=== PATIENT | female | born 1965 | race Caucasian/White ===

== ENCOUNTER 2016-12-20 17:31 | Emergency (ER) | payer OTHER ==
[~2016-12-20] VITALS: Ht 167.6 cm; Wt 134.4 kg
[2016-12-20 17:33] VITALS: TEMP 36.8; Ht 167.6 cm; Wt 134.4 kg
[2016-12-20] MEDS ORDERED: SODIUM CHLORIDE 0.9% 1000ML 1,000 ML IV STA (17:50)
[2016-12-20 18:08] LABS: BASO % 0.2 %; BASO ABS # 0.03 K/uL (0-0.2); COMPLETE YES; EOS % 0.5 %; HEMATOCRIT 42.5 % (37-47); IG% 0.4 %; LYMPH % 21.3 %; LYMPH ABS # 2.86 K/uL (1.2-3.4); MEAN CELL VOLUME 93.8 fL (80-100); MEAN CORPUSCULAR HEMOGLOBIN 32.9 pg (25-34); MEAN CORPUSCULAR HGB CONC 35.1 g/dl (32-36); MEAN PLATELET VOLUME 9.3 fL (7.4-10.4); MONO % 5.7 %; NEUT % 71.9 %; PLATELET COUNT 317 K/uL (130-400); RED BLOOD COUNT 4.53 M/uL (4.2-5.4); WHITE BLOOD COUNT 13.42 K/uL (4.8-10.8)
[2016-12-20 18:28] LABS: ALT/SGPT 39 U/L (12-78); BLOOD UREA NITROGEN 18 mg/dl (7-18); CALCIUM 9.5 mg/dl (8.5-10.1); CARBON DIOXIDE 25 mmol/L (21-32); CHLORIDE 106 mmol/L (98-107); GLUCOSE 104 mg/dl (70-99); POTASSIUM 3.6 mmol/L (3.5-5.1); SODIUM 142 mmol/L (136-145)
[2016-12-20 18:33] LABS: ALB/GLOB RATIO 0.9 (0.9-2); ALKALINE PHOSPHATASE 63 U/L (45-117); AST/SGOT 39 U/L (15-37)
--- NOTE | 2016-12-20 18:37 | DIAGNOSTIC IMAGING REPORT ---
ABD/PELVIS WITHOUT FOR STONE HISTORY: 51 years-old Female Left flank pain acute left-sided flank pain. Initial exam. COMPARISON: None available TECHNIQUE: Multiple axial CT images of the abdomen and pelvis were obtained without IV contrast. A dose lowering technique was used consistent with the principals of JAMMIE. FINDINGS: Lung bases are generally clear. There is no pneumoperitoneum. Imaged inferior cardiac chambers are unremarkable. Aortic annular calcifications are partially imaged. Hepatomegaly with severe hepatic steatosis is noted morbid obesity is noted. There is a nonspecific 7 mm area of increased attenuation involving the lateral left hepatic lobe seen on image 31 of the axial series with similar appearing 11 mm lesion seen within the inferior right hepatic lobe. The spleen, pancreas and adrenal glands are within normal limits. Gallbladder is unremarkable. There is moderate left-sided hydroureteronephrosis with a 4 x 3 x 3 mm calculus present within the distal left ureter which is seen at the level of S1-S2. Additionally, there is a punctate nonobstructing calculus in the interpolar left kidney. Several nonobstructing renal calculi are seen within the inferior pole right kidney. There is a large calculus of the right renal pelvis, 2.8 x 2.2 x 2.4 cm which demonstrates associated severe right-sided hydronephrosis. Urinary bladder is unremarkable. 2.0 x 1.5 cm lesion involves the left fundal uterus suggesting a subserosal leiomyoma. The abdominal aorta is normal in course and caliber. There is no bulky retroperitoneal adenopathy identified. No bowel obstruction. Colonic diverticulosis without diverticulitis noted. Appendix appears normal. Small fat filled periumbilical hernia is noted, diastases 1.9 cm. Degenerative changes involve the bilateral sacroiliac joints, pubic symphysis and lower lumbar spine. Moderate facet arthrosis involves lower lumbar spine. There is nonspecific soft tissue attenuating lesion of the subcutaneous left mid back, 1.6 x 1.3 cm seen on image 108 suggesting sebaceous cyst. IMPRESSION: 1. Large calculus of the right renal pelvis extends into the ureteropelvic junction measuring up to 2.8 cm causing severe right-sided hydronephrosis. 2. 4 mm calculus of the distal left ureter causes moderate hydroureteronephrosis. 3. Additional bilateral nonobstructing renal calculi. 3. Normal appendix. 4. Colonic diverticulosis without diverticulitis. 5. Hepatomegaly with severe hepatic steatosis. There are two foci within the liver demonstrating increased attenuation measuring up to 11 mm as above which are nonspecific. Statistically these lesions would favor hemangiomas or focal fatty sparing. The above report was generated using voice recognition software. It may contain grammatical, syntax or spelling errors. Electronically signed by: Ronaldo Maguire M.D. 12/20/2016 6:35 PM Dictated Date/Time: 12/20/2016 6:26 PM
[2016-12-20] MEDS ORDERED: HYZ/50125 PO (18:44)
[2016-12-20] MEDS ORDERED: MULT1CHW37 PO (18:44)
[2016-12-20 18:54] LABS: URINE APPEARANCE CLEAR (CLEAR); URINE BILIRUBIN NEG (NEG); URINE COLOR YELLOW; URINE EPITHELIAL CELL AUTO >30 /lpf (0-5); URINE NITRITE NEG (NEG); URINE PH 5.5 (4.5-7.5); URINE SPECIFIC GRAVITY 1.019 (1.000-1.030); UROBILINOGEN NEG (NEG); ZZUR CULT IF INDIC CLEAN CATCH YES
[2016-12-20] MEDS ORDERED: OXYC1TAB3 PO (18:57)
[2016-12-20] MEDS ORDERED: TAMS0.4C38 PO (18:58)
[2016-12-20 18:59] LABS: MANUAL MICROSCOPIC REQUIRED? NO; REVIEW REQ? NO
--- NOTE | 2016-12-20 19:01 | EMERGENCY ROOM VISIT NOTE ---
History First contact with patient: 17:40 Chief Complaint: FLANK PAIN Stated Complaint: LEFT SIDE PAIN History of Present Illness The patient is a 51 year old female who presents to the Emergency Room with complaints of left flank pain which began today. The patient states the pain seems to be radiating into her left upper quadrant in her abdomen. The patient was at the [facility] football game, and states the pain began during the game. She states she did vomit once at the end of the game. She states the nausea and pain have been improving since she got to the emergency department. The patient does have a significant past medical history of kidney stones, and states at one point she did have 35 stones and required 2 lithotripsies. The patient states this was approximately 15 years ago. The patient has not had a problem with kidney stone since then. The patient states that its worst, the pain radiated into her back, and she describes it as feeling "knifelike". The patient rated the pain 10/10. The patient states normally, the pain is dull and achy, and she describes it as 5/10. The patient has taken no medications for her pain. The patient denies fever, chills, constipation, diarrhea, headache, dizziness, blood in her urine, urinary symptoms including burning or frequency, chest pain, difficulty breathing, or other concerning symptoms. Review of Systems A complete 10 point review of systems was reviewed with the patient with pertinent positives and negatives as per history of present illness. All else were negative. Social History Smoking Status: Never Smoker Current/Historical Medications Scheduled Hctz/Losartan (Hyzaar 12.5MG/50MG), 1 TAB PO DAILY Multiple Vitamins W/ Minerals (Multi Adult Gummies), 2 TABS PO DAILY Tamsulosin Hcl (Flomax), 0.4 MG PO QD Scheduled PRN Oxycodone Ir (Roxicodone Ir), 1 TAB PO Q4-6H PRN for Pain Physical Exam Vital Signs Date Time Temp Pulse Resp B/P (MAP) Pulse Ox O2 Delivery O2 Flow Rate FiO2 12/20/16 19:26 82 152/95 98 12/20/16 18:44 90 155/92 98 Room Air 12/20/16 17:33 36.8 105 18 165/78 99 Room Air Physical Exam VITALS: Vitals are noted on the nurse's note and reviewed by myself. Vital signs stable. GENERAL: This is a 51-year-old obese, white female, in no acute distress, nondiaphoretic, well-developed well-nourished. SKIN: The skin was without rashes, erythema, edema, or bruising. There is no tenting of the skin. Capillary reflex less than 2 seconds. HEAD: Normocephalic atraumatic. EARS: External auditory canals clear, tympanic membranes pearly lacy without erythema or effusion bilaterally. EYES: Pupils equal round and reactive to light and accommodation. Conjunctivae without injection, sclerae without icterus. Extraocular movements intact. NOSE: Patent, turbinates without inflammation or discharge. No sinus tenderness. MOUTH: Mucous membranes moist. Tonsils are not enlarged. Pharynx without erythema or exudate. Uvula midline. Airway patent. Tongue does not deviate. NECK: Supple without nuchal rigidity. No lymphadenopathy. No thyromegaly. Cervical spine is nontender. No JVD. HEART: Regular rate and rhythm without murmurs gallops or rubs. LUNGS: Clear to auscultation bilaterally without wheezes, rales or rhonchi. No dullness to percussion. No retractions or accessory muscle use. ABDOMEN: Positive bowel sounds x 4. Normal tympanic percussion. Soft, nontender, without masses or organomegaly. Damon sign negative. No guarding or rebound tenderness. No CVA tenderness on palpation. MUSCULOSKELETAL: No muscle atrophy, erythema, or edema noted. Full range of motion without joint tenderness in all extremities. No tenderness to palpation. Normal gait. Strength 5/5 throughout. NEURO: Patient was alert and oriented to person place and time. Normal sensation to light and sharp touch. Deep tendon reflexes 2+ throughout. No focal neurological deficits. Medical Decision & Procedures ER Provider Diagnostic Interpretation: Urinalysis did show hematuria and white blood cells. The urinalysis is negative for nitrites. CBC did show mild leukocytosis of 13,000. CBC did not show any significant anemia or thrombocytopenia. CMP was without significant abnormalities and renal or liver function. Electrolytes were normal. Troponin and CK-MB were normal. Lipase was negative. CT ABDOMEN/PELVIS WITHOUT CONTRAST FOR STONE: FINDINGS: Lung bases are generally clear. There is no pneumoperitoneum. Imaged inferior cardiac chambers are unremarkable. Aortic annular calcifications are partially imaged. Hepatomegaly with severe hepatic steatosis is noted morbid obesity is noted. There is a nonspecific 7 mm area of increased attenuation involving the lateral left hepatic lobe seen on image 31 of the axial series with similar appearing 11 mm lesion seen within the inferior right hepatic lobe. The spleen, pancreas and adrenal glands are within normal limits. Gallbladder is unremarkable. There is moderate left-sided hydroureteronephrosis with a 4 x 3 x 3 mm calculus present within the distal left ureter which is seen at the level of S1-S2. Additionally, there is a punctate nonobstructing calculus in the interpolar left kidney. Several nonobstructing renal calculi are seen within the inferior pole right kidney. There is a large calculus of the right renal pelvis, 2.8 x 2.2 x 2.4 cm which demonstrates associated severe right-sided hydronephrosis. Urinary bladder is unremarkable. 2.0 x 1.5 cm lesion involves the left fundal uterus suggesting a subserosal leiomyoma. The abdominal aorta is normal in course and caliber. There is no bulky retroperitoneal adenopathy identified. No bowel obstruction. Colonic diverticulosis without diverticulitis noted. Appendix appears normal. Small fat filled periumbilical hernia is noted, diastases 1.9 cm. Degenerative changes involve the bilateral sacroiliac joints, pubic symphysis and lower lumbar spine. Moderate facet arthrosis involves lower lumbar spine. There is nonspecific soft tissue attenuating lesion of the subcutaneous left mid back, 1.6 x 1.3 cm seen on image 108 suggesting sebaceous cyst. IMPRESSION: 1. Large calculus of the right renal pelvis extends into the ureteropelvic junction measuring up to 2.8 cm causing severe right-sided hydronephrosis. 2. 4 mm calculus of the distal left ureter causes moderate hydroureteronephrosis. 3. Additional bilateral nonobstructing renal calculi. 3. Normal appendix. 4. Colonic diverticulosis without diverticulitis. 5. Hepatomegaly with severe hepatic steatosis. There are two foci within the liver demonstrating increased attenuation measuring up to 11 mm as above which are nonspecific. Statistically these lesions would favor hemangiomas or focal fatty sparing. Laboratory Results 12/20/16 18:00 Red Blood Count 4.53, Mean Corpuscular Volume 93.8, Mean Corpuscular Hemoglobin 32.9, Mean Corpuscular Hemoglobin Concent 35.1, Mean Platelet Volume 9.3, Neutrophils (%) (Auto) 71.9, Lymphocytes (%) (Auto) 21.3, Monocytes (%) (Auto) 5.7, Eosinophils (%) (Auto) 0.5, Basophils (%) (Auto) 0.2, Neutrophils # (Auto) 9.65, Lymphocytes # (Auto) 2.86, Monocytes # (Auto) 0.76, Eosinophils # (Auto) 0.07, Basophils # (Auto) 0.03 12/20/16 18:00 Test 12/20/16 17:49 12/20/16 17:50 12/20/16 18:00 Urine Color YELLOW Urine Appearance CLEAR (CLEAR) Urine pH 5.5 (4.5-7.5) Urine Specific Anselmo 1.019 (1.000-1.030) Urine Protein 1+ (NEG) Urine Glucose (UA) NEG (NEG) Urine Ketones 1+ (NEG) Urine Occult Blood 2+ (NEG) Urine Nitrite NEG (NEG) Urine Bilirubin NEG (NEG) Urine Urobilinogen NEG (NEG) Urine Leukocyte Esterase SMALL (NEG) Urine WBC (Auto) 10-30 /hpf (0-5) Urine RBC (Auto) 10-30 /hpf (0-4) Urine Hyaline Casts (Auto) 1-5 /lpf (0-5) Urine Epithelial Cells (Auto) >30 /lpf (0-5) Urine Bacteria (Auto) NEG (NEG) Creatine Kinase MB Ratio (0-3.0) White Blood Count 13.42 K/uL (4.8-10.8) Red Blood Count 4.53 M/uL (4.2-5.4) Hemoglobin 14.9 g/dL (12.0-16.0) Hematocrit 42.5 % (37-47) Mean Corpuscular Volume 93.8 fL (80-100) Mean Corpuscular Hemoglobin 32.9 pg (25-34) Mean Corpuscular Hemoglobin Concent 35.1 g/dl (32-36) Platelet Count 317 K/uL (130-400) Mean Platelet Volume 9.3 fL (7.4-10.4) Neutrophils (%) (Auto) 71.9 % Lymphocytes (%) (Auto) 21.3 % Monocytes (%) (Auto) 5.7 % Eosinophils (%) (Auto) 0.5 % Basophils (%) (Auto) 0.2 % Neutrophils # (Auto) 9.65 K/uL (1.4-6.5) Lymphocytes # (Auto) 2.86 K/uL (1.2-3.4) Monocytes # (Auto) 0.76 K/uL (0.11-0.59) Eosinophils # (Auto) 0.07 K/uL (0-0.5) Basophils # (Auto) 0.03 K/uL (0-0.2) RDW Standard Deviation 45.2 fL (36.4-46.3) RDW Coefficient of Variation 13.2 % (11.5-14.5) Immature Granulocyte % (Auto) 0.4 % Immature Granulocyte # (Auto) 0.05 K/uL (0.00-0.02) Anion Gap 11.0 mmol/L (3-11) Est Creatinine Clear Calc Drug Dose 93.8 ml/min Estimated GFR () 75.5 Estimated GFR (Non- 65.2 BUN/Creatinine Ratio 18.0 (10-20) Calcium Level 9.5 mg/dl (8.5-10.1) Total Bilirubin 0.4 mg/dl (0.2-1) Aspartate Amino Transf (AST/SGOT) 39 U/L (15-37) Alanine Aminotransferase (ALT/SGPT) 39 U/L (12-78) Alkaline Phosphatase 63 U/L (45-117) Creatine Kinase MB 1.6 ng/ml (0.5-3.6) Troponin I < 0.015 ng/ml (0-0.045) Total Protein 7.0 gm/dl (6.4-8.2) Albumin 3.4 gm/dl (3.4-5.0) Globulin 3.6 gm/dl (2.5-4.0) Albumin/Globulin Ratio 0.9 (0.9-2) Lipase 92 U/L (73-393) Medications Administered Medications (Trade) Dose Ordered Sig/Jim Route Start Time Stop Time Status Last Admin Dose Admin Sodium Chloride 1,000 ml @ 999 mls/hr Q1H1M STAT IV 12/20/16 17:50 12/20/16 18:50 DC 12/20/16 17:50 999 MLS/HR Oxycodone HCl (Roxicodone Immediate Rel 5MG Home Pack) 1 homepack UD ONCE PO 12/20/16 19:15 12/20/16 19:16 DC 12/20/16 19:09 1 HOMEPACK ECG Indication: abdominal pain Rate (beats per minute): 91 Rhythm: normal sinus Findings: no acute ischemic change, no ectopy ED Course The patient was seen and evaluated as above. She was given a 1 L bolus of normal saline solution. The patient states her pain is manageable at this time. Labs, EKG, urinalysis were ordered and performed. CT scan without contrast was ordered. I discussed the findings with the patient as well as Dr. Gresham. The patient states she would not like to be admitted, and states she will refuse admission if that is our recommendation. The patient's pain has been under good control since she has been in the emergency department, and she does have a history of stones. The patient does have an established urologist, and will follow-up next week. I did discuss all risks of discharge including worsening hydronephrosis, renal infection, and . The patient states she understands and would like to go home. The patient was given a home pack of OxyIR and paper prescriptions. She was discharged home in good condition. Medical Decision The patient presented today with left flank pain, similar to the pain she has experienced in the past with kidney stones. The patient's workup is consistent with ureteral calculus. The right-sided calculus in the right renal pelvis causing hydronephrosis does appear to be chronic in nature. The patient will follow up short-term with her urologist when she gets home to the [facility]. Differential diagnosis includes: Ureteral calculi, renal calculi, hydronephrosis , pyelonephritis, urinary tract infection, abscess, infection, sepsis, malignancy, and others. [place] Drug Monitoring Program Search Results: patient reviewed within database, no issues identified Medication Reconcilliation Current Medication List: was personally reviewed by mt Blood Pressure Screening Patient's blood pressure: Elevated blood pressure Blood pressure disposition: Elevated BP felt to be situational Impression Primary Impression: Calculi, ureter Additional Impressions: Ureteropelvic junction calculus Hydronephrosis Departure Information Dispostion Home / Self-Care Condition GOOD Prescriptions Tamsulosin Hcl (FLOMAX) 0.4 Mg Cap 0.4 MG PO QD for 7 Days, #7 CAP Prov: Judy Carl, ALANA 12/20/16 Oxycodone Ir (Roxicodone Ir) 5 Mg Tab 1 TAB PO Q4-6H Y for Pain, #15 TAB For Initial Treatment Prov: Judy Carl PA-C 12/20/16 Referrals No Doctor, Assigned (PCP) Patient Instructions ED Stone Renal [facility], [facility] Additional Instructions You have been treated in the Emergency Department today for a Kidney Stone ( Nephrolithiasis). You have been prescribed OxyIR to be used for pain control. This is a narcotic medication. You cannot drive or consume alcohol while on this medicine. This medicine should only be used for pain that cannot be controlled with over-the- counter pain medicines. You have been prescribed Zofran to be used for any nausea or vomiting. Take as prescribed. You have been prescribed Flomax 0.4 mg to be taken ONCE daily. This medicine has been prescribed as it can help relax the smooth muscles of the urinary tract increasing transit time of the kidney stone. For pain control, you can use the following [id number] medicines (if >12 yo): Ibuprofen(Motrin, Advil) may be used for fever or pain. Use 600mg every six hours as needed. Take with food. Avoid using more than 2400mg in a 24 hour period. Do not use 2400mg per day for more than three consecutive days without physician direction. Prolonged inappropriate use can lead to stomach upset or ulcers. (AND/OR) Acetaminophen(Tylenol) may be used for fever or pain. Use 1000mg every six hours as needed. Avoid using more than 3000mg in a 24 hour period. You have been provided a strainer and specimen collection cup. You should strain your urine to collect any passed stones. Your stones can be placed into the specimen cup and taken to your Urologist for further evaluation. You should contact your Urologist's office on Thursday to establish a follow-up appointment from today's Emergency Department visit. Return to the Emergency Department if your symptoms persist despite the treatment plan outlined above or if you develop the following symptoms: intractable pain, fever, chills, or large amounts of blood in your urine. Problem Qualifiers Additional Impressions: Hydronephrosis Hydronephrosis type: unspecified Qualified Codes: N13.30 - Unspecified hydronephrosis
[2016-12-20] MEDS ORDERED: OXYCODONE IR HOME PACK PO ONE (19:15)
[2016-12-20 19:26] VITALS: BP 152/95; PULSE 82; O2SAT 98
== END 2016-12-20 19:29 | disposition home or self-care (01) ==
LOC: C.EDB 17:34 → C.EDC 19:29
DX: N13.2 Hydronephrosis with renal and ureteral calculous obstruction (principal); R10.9 Unspecified abdominal pain; R11.0 Nausea; Z79.899 Other long term (current) drug therapy